=== PATIENT | female | born 1970 | race American Indian/Alaskan Native ===

== ENCOUNTER 2023-12-22 11:10 | Outpatient (AMB) | payer OTHER, SELFPAY ==
[2023-12-22 11:19] VITALS: BP 112/68; PULSE 73; RESP 13; O2SAT 96; BMI 30.2
--- NOTE | 2023-12-22 11:19 | A.OFFPC_ITS ---
Vital Signs 12/22/23 11:19 Height 5 ft 7 in Weight 193 lb BMI 30.2 BP 112/68 Blood Pressure Location Lt brachial Position Sitting Respiration 13 Pulse 73 Pulse Source Pulse Oximeter Pulse Oximetry (%) 96 Oxygen Delivery Method Room Air Intake Visit Reasons: NPV Intake Note: Patient is here to establish care. Accompanied by: Self / Same As Patient Allergies No Known Allergies Allergy (Verified 12/22/23 11:22) Medication List - Last Reconciled 12/22/23 by Tameka Winslow MD atomoxetine 60 mg PO DAILY fluticasone propion-salmeterol 250-50 mcg/dose (Advair Diskus) 1 inh inhalation Q12H zolpidem 10 mg PO BEDTIME PRN Tobacco use date assessed: 12/22/23 Dental Screening Dental Screen Date: 12/22/23 Did you have a dental visit in the last 12 months?: Yes Did you have a dental problem in the last 6 months where you did not have access to dental care?: No Was dental information given to patient?: Patient has dentist HPI HPI Comments History of Present Illness Details The patient is a 53 year old female with pmhx cervicalgia, polyarthralgia, anxiety & depression, Barretts esophagus, collagenous colitis presenting for follow up Insomnia-on ambien, elavil MSK-Chronic hip and knee pain. bilateral History of lyme. CV: Had stress test for chest pain last year Anxiety & depression: Doing ok off ssri. Still trouble sleeping though improvement on elavil. Family tragedy 5 years ago. Recurrent UTI: Sees urogynecology Dr Card. hearing loss worsening. ROS see HPI PHYSICAL EXAM: GENERAL: Alert and oriented x 3. NAD EYES: EOMI. Anicteric. HENT: Moist mucous membranes. No scleral icterus. No cervical lymphadenopathy. LUNGS: Clear to auscultation bilaterally. CARDIOVASCULAR: Regular rate and rhythm. No murmur. No JVD. ABDOMEN: Soft, non-tender +bs EXTREMITIES: No edema. Non-tender. SKIN: No rashes or lesions. Warm. NEUROLOGIC: No focal neurological deficits. CN II-XII grossly intact PSYCHIATRIC: Cooperative. Appropriate mood and affect [facility] Medical History Anxiety Arthritis Chronic GERD Asthma Ovarian cyst Surgical History History of hip surgery History of knee surgery Previous section Family History Mother Asthma Hypertension Maternal Grandmother Hypertension Colon cancer Social History Household Members: Spouse and Children Housing: Apartment Alcohol intake: current Alcohol intake frequency: a few times a month Patient Tobacco Use Status: Never used Tobacco Tobacco use type: Cigarette e-Cigarette/Vaping Use: Never Used Substance Use Type: Marijuana service: No Current occupational status: employed Current occupation: [employer] Cognitive needs: No Hearing needs: Yes (Left ear hearing loss) Vision needs: Yes (wears glasses) Questionnaire PHQ-9 Over the last 2 weeks, how often have you been bothered by any of the following problems? 1. Little interest or pleasure in doing things: not at all 2. Feeling down, depressed, or hopeless: not at all 3. Trouble falling or staying asleep, or sleeping too much: not at all 4. Feeling tired or having little energy: nearly every day 5. Poor appetite or overeating: not at all 6. Feeling bad about yourself - or that you are a failure or have let yourself or your family down: not at all 7. Trouble concentrating on things, such as reading the newspaper or watching television: several days 8. Moving or speaking so slowly that other people could have noticed. Or the opposite - being so fidgety or restless that you have been moving around a lot more than usual: not at all 9. Thoughts that you would be better off or of hurting yourself in some way: not at all Total score: 4 Depression Screening Interpretation: Negative Depression Screening Done: Yes 47155 - PHQ-9 Billing: Yes Source: Developed by Drs. Connor Taveras, Monica Hickey, Shyam Prater and colleagues, with an educational eli from [employer] Thrive Questionnaire Date Thrive assessed: 12/22/23 I am a: Patient What is your living situation today?: I have a steady place to live Within the past 12 months, did the food you bought not last and you didn't have the money to get more?: Never true Within the past 12 months, did you worry whether your food would run out before you got money to buy more?: Never true Do you have trouble paying for medicines?: No Do you have trouble getting transportation to medical appointments?: No Do you have trouble paying your heating and electricity bill?: No Do you have trouble taking care of your child, family member or friend?: No Do you have trouble with day-to-day activities such as bathing, preparing meals, shopping, managing finances, etc.?: No Are you currently unemployed and looking for a job?: No Are you interested in more education?: No Please select the resources that you would like help with: None Currently or been in a relationship where the following occur: No concerns reported THRIVE Score: 0 AUDIT C Alcohol Use Questionnaire (AUDIT-C) 1. How often do you have a drink containing alcohol?: Monthly or less 2. How many drinks containing alcohol do you have on a typical day when you are drinking?: 1 or 2 3. How often do you have six or more drinks on one occasion?: Never Total Score: 1 SUSANNA-7 AMB Questionnaire SUSANNA-7 Date SUSANNA - 7 assessed: 12/22/23 Feeling nervous, anxious, or on edge: 1 = Several days Not being able to stop or control worryin = Not at all Worrying too much about different things: 1 = Several days Trouble relaxin = Several days Being so restless that it is hard to sit still: 1 = Several days Becoming easily annoyed or irritable: 1 = Several days Feeling afraid as if something awful might happen: 0 = Not at all Total SUSANNA-7 score (0-4 normal; 5-9 mild; 10-14 moderate; 15-21 severe): 5 Source: Developed by Drs. Connor Taveras, Monica Hickey, Shyam Prater and colleagues, with an educational eli from [employer] SUSANNA-7 Assessment Billing SUSANNA-7 Assessment Tool: SUSANNA-7 Assessment 04601 ACT Questionnaire In the past 4 weeks, how much of the time did your asthma keep you from getting as much done at work, school or at home?: None of the time During the past 4 weeks, how often have you had shortness of breath?: Not at all During the past 4 weeks, how often did your asthma symptoms wake you up at night or earlier than usual in the morning?: Not at all During the past 4 weeks, how often have you had to use your rescue inhaler or n ebulizer medication?: Not at all How would you rate your asthma control during the past 4 weeks?: Completely controlled ACT Interpretation: Negative Score: 25 Physical exam (Primary Care) Vital Signs: Last Vital Signs Pulse 73 12/22/23 11:19 Resp 13 12/22/23 11:19 BP 112/68 12/22/23 11:19 Pulse Ox 96 12/22/23 11:19 Oxygen Delivery Method Room Air 12/22/23 11:19 BMI result Body Mass Index 30.2 Tobacco/Smoking Status: Tobacco use Status Tobacco use date assessed 12/22/23 12/22/23 11:37 Patient Tobacco Use Status Never used Tobacco 12/22/23 11:37 Tobacco use type Cigarette 12/22/23 11:31 e-Cigarette/Vaping Use Never Used 12/22/23 11:37 PHQ-9: PHQ-9 Score PHQ-9: Total score 4 12/22/23 11:36 Depression Screening Interpretation: Negative Thrive Assessment: Date of Thrive Assessment Date Thrive assessed 12/22/23 12/22/23 11:28 Currently or been in a relationship where the following occur: No concerns reported Assessment and Plan Assessment & Plan (1) Weight gain: Code(s): R63.5 - Abnormal weight gain Plan: check labs. GLP if covered. (2) Anxiety: Code(s): F41.9 - Anxiety disorder, unspecified (3) Asthma: Code(s): J45.909 - Unspecified asthma, uncomplicated Qualifiers: Asthma severity: moderate Asthma persistence: persistent Asthma complication type: uncomplicated Qualified Code(s): J45.40 - Moderate persistent asthma, uncomplicated (4) Hearing loss: Code(s): H91.90 - Unspecified hearing loss, unspecified ear Qualifiers: Hearing loss type: unspecified Laterality: left Qualified Code(s): H91.92 - Unspecified hearing loss, left ear Plan: referral to audiology Orders: Orders Complete Blood Count Auto Diff 12/22/23 R63.5 - Abnormal weight gain, Z13.0 - Encounter for screening for diseases of the blood and blood-forming organs and certain disorders involving the immune mechanism, Z13.220 - Encounter for screening for lipoid disorders, Z13.228 - Encounter for screening for other metabolic disorders Comprehensive Met. Panel 12/22/23 R63.5 - Abnormal weight gain, Z13.0 - Encounter for screening for diseases of the blood and blood-forming organs and certain disorders involving the immune mechanism, Z13.220 - Encounter for screening for lipoid disorders, Z13.228 - Encounter for screening for other metabolic disorders Lipid Panel 12/22/23 R63.5 - Abnormal weight gain, Z13.0 - Encounter for screening for diseases of the blood and blood-forming organs and certain disorders involving the immune mechanism, Z13.220 - Encounter for screening for lipoid disorders, Z13.228 - Encounter for screening for other metabolic disorders TSH reflex Free T4 12/22/23 R63.5 - Abnormal weight gain, Z13.0 - Encounter for screening for diseases of the blood and blood-forming organs and certain disorders involving the immune mechanism, Z13.220 - Encounter for screening for lipoid disorders, Z13.228 - Encounter for screening for other metabolic disorders Hemoglobin A1c 12/22/23 R63.5 - Abnormal weight gain, Z13.0 - Encounter for screening for diseases of the blood and blood-forming organs and certain disorders involving the immune mechanism, Z13.220 - Encounter for screening for lipoid disorders, Z13.228 - Encounter for screening for other metabolic disord ers Referrals Audiology Referral H91.90 - Unspecified hearing loss, unspecified ear, R63.5 - Abnormal weight gain, Z13.0 - Encounter for screening for diseases of the blood and blood-forming organs and certain disorders involving the immune mechanism, Z13.220 - Encounter for screening for lipoid disorders, Z13.228 - Encounter for screening for other metabolic disorders Medications: New amitriptyline 25 mg PO BEDTIME 90 tabs 3RF estradiol apply 1 patch for 3 days alternating with 1 patch for 4 days each week 1 patch transdermal 2XW 8 ea 3RF semaglutide (Ozempic) for 4 weeks 0.25 mg (0.368 mL) subcut QWEEK 3 mL 3RF 4 weeks Coding Level of Care Code Est Pt Level 4 (50155) Diagnoses Weight gain R63.5 Anxiety F41.9 Moderate persistent asthma without complication J45.40 Asthma severity: moderate Asthma persistence: persistent Asthma complication type: uncomplicated Hearing loss of left ear, unspecified hearing loss type H91.92 Hearing loss type: unspecified Laterality: left Additional Codes SUSANNA-7 Assessment Billing - USSANNA-7 Assessment Tool: SUSANNA-7 Assessment 01460 ([id number])
== END 2023-12-22 12:11 | disposition home or self-care (01) ==
PROVIDERS: PCP Internal Medicine; Visit Provider Internal Medicine
DX: R63.5 Abnormal weight gain (principal); F41.9 Anxiety disorder, unspecified; J45.40 Moderate persistent asthma, uncomplicated; H91.92 Unspecified hearing loss, left ear
CPT/HCPCS: 99214

== ENCOUNTER 2023-12-22 12:06 | Outpatient (REF) | payer OTHER, SELFPAY ==
[2023-12-22 14:27] LABS: MANUAL DIFF FLAG NO
[2023-12-22 14:35] LABS: Basophils Absolute Auto 0.1 X10*3/uL (0.0-0.2); Basophils Percent Auto 1.3 % (0-2); Eosinophils Absolute Auto 0.7 X10*3/uL (0.0-0.4); Eosinophils Percent Auto 12.3 % (0-4); Imm Gran Abs Auto 0.01 X10*3/uL (0.00-0.03); Imm Gran Pct Auto 0.2 % (0.0-0.4); Lymphocytes Absolute Auto 1.4 X10*3/uL (1.2-4.9); Lymphocytes Percent Auto 23.3 % (20-40); Mean Corpuscular HGB Conc 31.8 g/dl (31.0-35.0); Mean Corpuscular Hemoglobin 28.5 pg (27.0-33.0); Mean Corpuscular Volume 89.4 fL (80.0-98.0); Mean Platelet Volume 10.8 fL (9.4-12.3); Monocytes Absolute Auto 0.5 X10*3/uL (0.1-1.2); Monocytes Percent Auto 8.1 % (2-11); Neutrophils Absolute Auto 3.3 x10*3/uL (2.0-8.3); Neutrophils Percent Auto 54.8 % (45-73); Platelet Count 270 X10*3/uL (160-400); Red Blood Count 4.92 X10*6/uL (4.20-5.50); Red Cell Distribution Width 14.9 % (11.0-16.0); White Blood Count 5.9 X10*3/uL (4.8-10.8)
[2023-12-22 15:01] LABS: Alanine Aminotransferase 18 U/L (0-31); Alkaline Phosphatase 87 U/L (39-117); Anion Gap 10 (12-20); Aspartate Amino Transferase 20 U/L (5-31); Bilirubin Total 0.3 mg/dL (0.0-1.0); Blood Urea Nitrogen 10 mg/dL (9-16); Calcium 9.4 mg/dL (8.4-10.2); Carbon Dioxide 27 mmol/L (22-29); Chloride 110 mmol/L (96-108); Cholesterol 218 mg/dL (<200); Estimated Glomerular Filt Rate > 60; Glucose Random 90 mg/dL (60-115); HDL Cholesterol 83 mg/dL (>40); LDL Cholesterol Calculated 119 mg/dL (<100); Potassium 4.4 mmol/L (3.3-5.1); Sodium 143 mmol/L (135-145); TSH reflex Free T4 1.63 uIU/mL (0.32-4.0); Total Protein 7.4 g/dL (6.5-8.0); Triglycerides 83 mg/dL (<150)
[2023-12-22 15:45] LABS: Estimated Average Glucose 97 mg/dL
== END 2023-12-22 12:07 | disposition home or self-care (01) ==
LOC: HO.WFDLDS 12:06
PROVIDERS: Visit Provider Internal Medicine
DX: Z13.228 Encounter for screening for other metabolic disorders (principal); Z13.220 Encounter for screening for lipoid disorders; Z13.0 Encounter for screening for diseases of the blood and blood-forming organs and certain disorders involving the immune mechanism; R63.5 Abnormal weight gain
CPT/HCPCS: 36415; 80053; 80061; 83036; 84443; 85025

== ENCOUNTER 2024-02-23 10:01 | Outpatient (REF) | payer OTHER, SELFPAY | END 2024-02-23 10:02 | disposition home or self-care (01) | LOC: HO.SH 10:01 | PROVIDERS: Visit Provider Internal Medicine | DX: Z01.118 Encounter for examination of ears and hearing with other abnormal findings (principal); H93.13 Tinnitus, bilateral | CPT/HCPCS: 92557; 92567 ==

== ENCOUNTER 2024-11-01 14:47 | Outpatient (AMB) | payer OTHER, SELFPAY ==
--- NOTE | 2024-11-01 15:02 | A.OFFPC_ITS ---
Vital Signs 11/01/24 15:04 Height 5 ft 7 in Weight 198 lb 4 oz BMI 31.0 BP 116/74 Blood Pressure Location Rt brachial Position Sitting Respiration 12 Pulse 77 Pulse Source Pulse Oximeter Temp 97.5 F Temp Source Oral Pulse Oximetry (%) 97 Oxygen Delivery Method Room Air Intake Visit Reasons: discuss getting US for gallbladder Intake Note: Left sided pain. 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: No Allergies No Known Allergies Allergy (Verified 11/01/24 15:03) Tobacco use date assessed: 11/01/24 Dental Screening Dental Screen Date: 11/01/24 Did you have a dental visit in the last 12 months?: Yes Did you have a dental problem in the last 6 months where you did not have access to dental care?: No Was dental information given to patient?: Patient has dentist HPI HPI Comments History of Present Illness Details The patient is a 53 year old female with pmhx cervicalgia, polyarthralgia, anxiety & depression, Barretts esophagus, collagenous colitis presenting for follow up She has been having frequent intermittent bouts of RUQ pain. Was hospitalized at [facility] ~2 years ago and had gallstones at the time and was recommended re moval. Pain comes and goes. She eats very healthy, she is unsure if worse with eating Insomnia-on ambien, elavil MSK-Chronic hip and knee pain. bilateral History of lyme. CV: Had stress test for chest pain last year Anxiety & depression: On atomexitine, elavil. Still trouble sleeping though improvement on elavil. Family tragedy 5 years ago. Recurrent UTI: Sees urogynecology Dr Card. MSK: Continues to have pain in the hands and increased size and number of hard nodules on the joints. She would like to see a hand surgeon hearing loss worsening. ROS see HPI PHYSICAL EXAM: GENERAL: Alert and oriented x 3. NAD EYES: EOMI. Anicteric. HENT: Moist mucous membranes. No scleral icterus. No cervical lymphadenopathy. LUNGS: Clear to auscultation bilaterally. CARDIOVASCULAR: Regular rate and rhythm. No murmur. No JVD. ABDOMEN: Soft, non-tender +bs EXTREMITIES: No edema. Non-tender. SKIN: No rashes or lesions. Warm. NEUROLOGIC: No focal neurological deficits. CN II-XII grossly intact PSYCHIATRIC: Cooperative. Appropriate mood and affect [facility] Medical History Anxiety Arthritis Chronic GERD Asthma Ovarian cyst Surgical History History of hip surgery History of knee surgery Previous section Family History Mother Asthma Hypertension Maternal Grandmother Hypertension Colon cancer Social History Household Members: Spouse and Children Housing: Apartment Alcohol intake: current Alcohol intake frequency: a few times a month Patient Tobacco Use Status: Former Tobacco user Tobacco use type: Cigarette Cigarette Packs Per Day: 1 Years Smoked: 12 e-Cigarette/Vaping Use: Never Used Substance Use Type: Marijuana service: No Current occupational status: employed Current occupation: [employer] Current occupational exposures/hazards: Yes Cognitive needs: No Hearing needs: Yes (Left ear hearing loss) Vision needs: Yes (wears glasses) Questionnaire PHQ-9 Over the last 2 weeks, how often have you been bothered by any of the following problems? 1. Little interest or pleasure in doing things: not at all 2. Feeling down, depressed, or hopeless: not at all 3. Trouble falling or staying asleep, or sleeping too much: not at all 4. Feeling tired or having little energy: nearly every day 5. Poor appetite or overeating: not at all 6. Feeling bad about yourself - or that you are a failure or have let yourself or your family down: not at all 7. Trouble concentrating on things, such as reading the newspaper or watching television: more than half the days 8. Moving or speaking so slowly that other people could have noticed. Or the opposite - being so fidgety or restless that you have been moving around a lot more than usual: not at all 9. Thoughts that you would be better off or of hurting yourself in some way: not at all Total score: 5 Source: Developed by Drs. Connor Taveras, Monica Hickey, Shyam Prater and colleagues, with an educational eli from [email or web address] Thrive Questionnaire Date Thrive assessed: 10/29/24 I am a: Patient What is your living situation today?: I have a steady place to live Within the past 12 months, did the food you bought not last and you didn't have the money to get more?: Never true Within the past 12 months, did you worry whether your food would run out before you got money to buy more?: Never true Do you have trouble paying for medicines?: No Do you have trouble getting transportation to medical appointments?: No Do you have trouble paying your heating and electricity bill?: No Do you have trouble taking care of your child, family member or friend?: No Do you have trouble with day-to-day activities such as bathing, preparing meals, shopping, managing finances, etc.?: No Are you currently unemployed and looking for a job?: No Are you interested in more education?: Yes Please select the resources that you would like help with: None Currently or been in a relationship where the following occur: No concerns reported THRIVE Score: 0 AUDIT C Alcohol Use Questionnaire (AUDIT-C) 1. How often do you have a drink containing alcohol?: 2-4 times a month 2. How many drinks containing alcohol do you have on a typical day when you are drinking?: 1 or 2 3. How often do you have six or more drinks on one occasion?: Never Total Score: 2 SUSANNA-7 AMB Questionnaire SUSANNA-7 Date SUSANNA - 7 assessed: 12/22/23 Feeling nervous, anxious, or on edge: 1 = Several days Not being able to stop or control worryin = Not at all Worrying too much about different things: 1 = Several days Trouble relaxin = Several days Being so restless that it is hard to sit still: 0 = Not at all Becoming easily annoyed or irritable: 1 = Several days Feeling afraid as if something awful might happen: 0 = Not at all Total SUSANNA-7 score (0-4 normal; 5-9 mild; 10-14 moderate; 15-21 severe): 4 Source: Developed by Drs. Connor Taveras, Monica Hickey, Shyam Prater and colleagues, with an educational eli from [email or web address]. Physical exam (Primary Care) Vital Signs: Last Vital Signs Temp 97.5 F 11/01/24 15:04 Pulse 77 11/01/24 15:04 Resp 12 11/01/24 15:04 BP 116/74 11/01/24 15:04 Pulse Ox 97 11/01/24 15:04 Oxygen Delivery Method Room Air 11/01/24 15:04 BMI result Body Mass Index 31.0 Tobacco/Smoking Status: Tobacco use Status Tobacco use date assessed 11/01/24 11/01/24 15:07 Patient Tobacco Use Status Former Tobacco user 11/01/24 15:07 Tobacco use type Cigarette 11/01/24 15:07 e-Cigarette/Vaping Use Never Used 11/01/24 15:07 PHQ-9: PHQ-9 Score PHQ-9: Total score 5 11/01/24 15:11 Thrive Assessment: Date of Thrive Assessment Date Thrive assessed 10/29/24 11/01/24 15:07 Currently or been in a relationship where the following occur: No concerns reported Coding Level of Care Code Est Pt Level 4 (12736) Complex EM visit Add On G2211 Diagnoses Bilateral hand pain M79.641; M79.642 Rheumatoid nodule of hand, unspecified laterality M06.349 Laterality: unspecified laterality RUQ pain R10.11 Assessment & Plan Assessment & Plan (1) Bilateral hand pain: Code(s): M79.641 - Pain in right hand; M79.642 - Pain in left hand Category: Medical (2) Rheumatoid nodule of hand: Code(s): M06.349 - Rheumatoid nodule, unspecified hand Category: Medical Qualifiers: Laterality: unspecified laterality Qualified Code(s): M06.349 - Rheumatoid nodule, unspecified hand (3) RUQ pain: Code(s): R10.11 - Right upper quadrant pain Category: Medical Plan RUQ pain-ultrasound and labs ordered. Refer as needed to general surgery pending us results Hand pain, bilateral with nodularities-referral placed to hand surgery Depression -increase atomoxetine Orders: Orders Gamma Glutamyl Transpeptidase 11/01/24 G47.00 - Insomnia, unspecified, M54.50 - Low back pain, unspecified, R10.11 - Right upper quadrant pain US abdomen limited 11/01/24 R10.11 - Right upper quadrant pain Comprehensive Met. Panel 11/01/24 G47.00 - Insomnia, unspecified, M54.50 - Low back pain, unspecified, R10.11 - Right upper quadrant pain Lipase 11/01/24 G47.00 - Insomnia, unspecified, M54.50 - Low back pain, unspecified, R10.11 - Right upper quadrant pain Amylase 11/01/24 G47.00 - Insomnia, unspecified, M54.50 - Low back pain, unspecified, R10.11 - Right upper quadrant pain Complete Blood Count Auto Diff 11/01/24 G47.00 - Insomnia, unspecified, M54.50 - Low back pain, unspecified, R10.11 - Right upper quadrant pain TSH reflex Free T4 11/01/24 G47.00 - Insomnia, unspecified, M54.50 - Low back pain, unspecified, R10.11 - Right upper quadrant pain Referrals Hand Surgery Referral M06.349 - Rheumatoid nodule, unspecified hand, M79.641 - Pain in right hand, M79.642 - Pain in left hand Medications: New atomoxetine 80 mg PO DAILY 90 caps 0RF tirzepatide (weight loss) (Zepbound) for 4 weeks 2.5 mg (0.5 mL) subcut QWEEK 2 mL 0RF E66.9 - Obesity, unspe cified, E78.5 - Hyperlipidemia, unspecified
[2024-11-01 15:04] VITALS: BP 116/74; PULSE 77; RESP 12; TEMP 36.4; O2SAT 97; BMI 31.0
--- OUTSIDE RECORDS SUMMARY | 2024-11-01 15:52 | XMS_ITS | Clinical Summary ---
Author Organization [employer] Address [address] [place] [address] Care Team Providers Care Sawyer Cork Slabs Name Role Phone Unavailable Primary Care Provider Unavailabl e Social History Tobacco Use Types Packs/Day Years Used Date Smoking Tobacco: Never Assessed Comments Unknown Sex and Gender Information Value Date Recorded Sex Assigned at Female 04/21/2022 10:35 AM EDT Legal Sex Female 10:35 AM EDT Gender Identity Female 04/21/2022 10:35 AM EDT Sexual Orientation Not on file Plan of Treatment Health Maintenance Due Date Last Done Comments CT Colonography 1969 Colonoscopy 1969 Colorectal Cancer Screening 1969 Depression Screening 1969 FIT DNA/Cologuard 1969 FIT 1969 FOBT 1969 Sigmoidoscopy 1969 Alcohol/Substance Use Screening 1981 Tobacco Screening 1981 DTaP/Tdap/Td Vaccines (1 - Tdap) 1988 Hepatitis B Vaccines (1 of 3 - 19+ 3-dose series) 1988 Pap Smear 1990 Cervical Cancer Screening 10/05/1999 HPV/Cotest 10/05/1999 Mammogram 2009 Pneumococcal Vaccine: 50+ Ye ars (1 of 1 - PCV) 10/05/2019 Zoster Vaccines (1 of 2) 10/05/2019 COVID-19 Vaccine ( - 2023-2 5 season) 2024 Influenza Vaccine (#1) 2024 RSV Patients and Pa tients Aged 60 years or older (1 - 1-dose 75+ series) 2044 HIB Vaccines Aged Out No longer eligi ble based on patient's age to complete this topic HPV Vaccines Aged Out No longer eligi ble based on patient's age to complete this topic Hepatitis A Vaccines Aged Out No long er eligible based on patient's age to complete this topic IPV Vaccines Aged Out No longer eligi ble based on patient's age to complete this topic Meningococcal Vaccine Aged Out No raquel anahi eligible based on patient's age to complete this topic Pneumococcal Vaccine: Pediat rics (0 to 5 Years) and At-Risk Patients (6 to 49) Years) Aged Out No longer eligible b ased on patient's age to complete this topic RSV under 20 months Aged Out No longe r eligible based on patient's age to complete this topic Rotavirus Vaccines Aged Out No longer eligible based on patient's age to complete this topic
--- OUTSIDE RECORDS SUMMARY | 2024-11-01 15:52 | XMS_ITS | Encounter Summary ---
Author Organization [facility] Address [address] [place] [address] Care Team Providers Care Electric Brain Wave Equipment Mechanic Name Role Phone Unavailable Primary Care Provider Unavailabl e Encounter Details Date Type Department Care Team (Latest Contact Info) Description 12/03/2018 Abstract [facility] CONVERSIONS Dental, Provider, DDS Social History Tobacco Use Types Packs/Day Years Used Date Smoking Tobacco: Never Assessed Comments Unknown Sex and Gender Information Value Date Recorded Sex Assigned at Female 04/21/2022 10:35 AM EDT Legal Sex Female 10:35 AM EDT Gender Identity Female 04/21/2022 10:35 AM EDT Sexual Orientation Not on file documented as of this encounter Plan of Treatment Not on file documented as of this encounter Visit Diagnoses Not on filedocumented in this encounter
== END 2024-11-01 17:10 | disposition home or self-care (01) ==
LOC: HO.HMCFM 14:48
PROVIDERS: PCP Internal Medicine; Visit Provider Internal Medicine
DX: M79.641 Pain in right hand (principal); M79.642 Pain in left hand; M06.349 Rheumatoid nodule, unspecified hand; R10.11 Right upper quadrant pain

== ENCOUNTER 2024-11-01 15:34 | Outpatient (REF) | payer OTHER, SELFPAY ==
--- OUTSIDE RECORDS SUMMARY | 2024-11-01 16:21 | XMS_ITS | Encounter Summary ---
Author Organization [employer] [facility] Address [address] [place] [address] Care Team Providers Care Deputy Editor In Chief Name Role Phone Unavailable Primary Care Provider Unavailabl e Encounter Details Date Type Department Care Team (Latest Contact Info) Description 12/03/2018 Abstract [facility] CONVERSIONS Dental, Provider, DDS Social History Tobacco [...]
--- OUTSIDE RECORDS SUMMARY | 2024-11-01 16:21 | XMS_ITS | Clinical Summary ---
Author Organization [employer] Address [address] [place] [address] Care Team Providers Care Behaviorist Name Role Phone Unavailable Primary Care Provider [...]
[2024-11-01 17:57] LABS: MANUAL DIFF FLAG NO
[2024-11-01 18:10] LABS: Basophils Absolute Auto 0.1 X10*3/uL (0.0-0.2); Basophils Percent Auto 1.1 % (0-2); Eosinophils Absolute Auto 0.6 X10*3/uL (0.0-0.4); Eosinophils Percent Auto 8.4 % (0-4); Hematocrit 43.1 % (37.0-47.0); Hemoglobin 13.9 g/dl (12.0-16.0); Imm Gran Abs Auto 0.01 X10*3/uL (0.00-0.03); Imm Gran Pct Auto 0.2 % (0.0-0.4); Lymphocytes Absolute Auto 1.7 X10*3/uL (1.2-4.9); Lymphocytes Percent Auto 25.3 % (20-40); Mean Corpuscular HGB Conc 32.3 g/dl (31.0-35.0); Mean Corpuscular Hemoglobin 29.5 pg (27.0-33.0); Mean Corpuscular Volume 91.5 fL (80.0-98.0); Mean Platelet Volume 10.6 fL (9.4-12.3); Monocytes Absolute Auto 0.6 X10*3/uL (0.1-1.2); Monocytes Percent Auto 8.8 % (2-11); Neutrophils Absolute Auto 3.7 x10*3/uL (2.0-8.3); Neutrophils Percent Auto 56.2 % (45-73); Platelet Count 241 X10*3/uL (160-400); Red Blood Count 4.71 X10*6/uL (4.20-5.50); Red Cell Distribution Width 13.7 % (11.0-16.0); White Blood Count 6.6 X10*3/uL (4.8-10.8)
[2024-11-01 18:52] LABS: Alanine Aminotransferase 25 U/L (0-31); Alkaline Phosphatase 95 U/L (39-117); Amylase 80 U/L (28-100); Anion Gap 12 (12-20); Aspartate Amino Transferase 32 U/L (5-31); Bilirubin Total 0.5 mg/dL (0.0-1.0); Blood Urea Nitrogen 12 mg/dL (9-16); Calcium 8.8 mg/dL (8.4-10.2); Carbon Dioxide 25 mmol/L (22-29); Chloride 108 mmol/L (96-108); Estimated Glomerular Filt Rate > 60; Glucose Random 98 mg/dL (60-115); Lipase 40 U/L (8-78); Potassium 3.7 mmol/L (3.3-5.1); Sodium 141 mmol/L (135-145); TSH reflex Free T4 1.29 uIU/mL (0.32-4.0); Total Protein 7.2 g/dL (6.5-8.0)
[2024-11-01 19:06] LABS: Gamma Glutamyl Transpeptidase 30 U/L (7-33)
== END 2024-11-01 15:35 | disposition home or self-care (01) ==
LOC: HO.WFDLDS 15:34
PROVIDERS: Visit Provider Internal Medicine
DX: R10.11 Right upper quadrant pain (principal); G47.00 Insomnia, unspecified; M54.50 Low back pain, unspecified
CPT/HCPCS: 36415; 80053; 82150; 82977; 83690; 84443; 85025

== ENCOUNTER 2024-11-15 15:40 | Outpatient (REF) | payer OTHER, SELFPAY ==
--- NOTE | ~2024-11-15 | US_ITS ---
EXAMINATION: US ABDOMEN LIMITED CLINICAL INFORMATION: Right upper quadrant pain.. COMPARISON: None available. TECHNIQUE: Real-time imaging of the right upper quadrant abdominal viscera. FINDINGS: PANCREAS: Visualized portions are unremarkable. LIVER: The liver is normal in size. Right hepatic lobe measures 13.1 cm in length. The liver contour is normal. Parenchymal echogenicity is normal. No focal hepatic lesion. There is no intrahepatic biliary duct dilatation seen. GALLBLADDER: Gallbladder demonstrates wall echo shadow sign, suggestive of diffuse layering internal gallstones, with shadowing. There is mild wall thickening up to 4 mm. There is mild pericholecystic fluid. There was a positive sonographic Vaca sign at time of exam. COMMON BILE DUCT: Normal in caliber measuring 0.7 cm in diameter. RIGHT KIDNEY: No hydronephrosis. No renal calculi or focal parenchymal lesions. The kidney measures 9.8 cm in maximum dimension. FREE FLUID: None. US/US abdomen limited IMPRESSION: 1. Gallbladder appears filled with gallstones, with mild wall thickening, small amount of pericholecystic fluid, and a positive sonographic Vaca sign. Findings suggest acute cholecystitis. 2. No biliary dilatation. Electronically signed by: Colt Daly MD 11/15/2024 04:25 PM EDT
--- OUTSIDE RECORDS SUMMARY | 2024-11-15 15:43 | XMS_ITS | Clinical Summary ---
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 Role Phone Unavailable Primary Care Provider [...] 1969 FIT 1969 FOBT 1969 Sigmoidoscopy 1969 Disability Screening 1969 Alcohol/Substance Use Screening 1981 Tobacco Screening 1981 DTaP/Tdap/Td Vaccines (1 - Tdap) 1988 Hepatitis B Vaccines (1 of 3 - 19+ 3-dose series) 1988 Pap Smear 1990 Cervical Cancer Screening 10/05/1999 HPV/Cotest 10/05/1999 Mammogram 2009 Pneumococcal Vaccine: 50+ Ye ars (1 of 1 - PCV) 10/05/2019 Zoster Vaccines (1 of 2) 10/05/2019 COVID-19 Vaccine (2023-2 5 season) 2024 Influenza Vaccine (#1) 2024 [...] patient's age to complete this topic Meningococcal B Vaccine Aged Out No l onger eligible based on patient's age to complete [...]
== END 2024-11-15 15:41 | disposition home or self-care (01) ==
LOC: HO.US 15:40
PROVIDERS: Visit Provider Internal Medicine
DX: R10.11 Right upper quadrant pain (principal)
CPT/HCPCS: 76705

== ENCOUNTER → 2024-11-15 15:43 | Outpatient (BNV) | payer OTHER, SELFPAY | PROVIDERS: Visit Provider Radiology Diagnostic Radiology | DX: K80.00 Calculus of gallbladder with acute cholecystitis without obstruction (principal) | CPT/HCPCS: 76705 ==

== ENCOUNTER 2024-11-21 08:49 | Outpatient (AMB) | payer OTHER, SELFPAY ==
--- NOTE | 2024-11-21 08:51 | MHC.PC.OV ---
Vital Signs 11/21/24 08:57 BMI Reason not done Patient refused/unable BP 114/82 Blood Pressure Location Lt brachial Position Sitting Respiration 14 Pulse 90 Pulse Source Pulse Oximeter Pulse Oximetry (%) 98 Oxygen Delivery Method Room Air Intake Visit Reasons: ED Follow-up Intake Note: Emergency room follow up for gallbladder pain. Account Contact Associate Required: No Allergies No Known Allergies Allergy (Verified 11/21/24 08:51) Tobacco use date assessed: 11/21/24 Dental Screening Dental Screen Date: 11/21/24 Did you have a dental visit in the last 12 months?: Yes Did you have a dental problem in the last 6 months where you did not have access to dental care?: No Was dental information given to patient?: Patient has dentist HPI HPI Comments History of Present Illness Details The patient is a 53 year old female with pmhx cervicalgia, polyarthralgia, anxiety & depression, Barretts esophagus, collagenous colitis presenting for ER follow up She has been having frequent intermittent bouts of RUQ pain. Was hospitalized at [facility] ~2 years ago and had gallstones at the time and was recommended removal. Pain comes and goes. She eats very healthy, she is unsure if worse with eating. Ultrasound at [place] concerning for cholecystitis. Went to [facility] later same day and multiple stones but no evidence of acute cholecystitis. Needs surgery referral. Incidental pulmonary findings-referral to pulm placed. Not in pain today, continues to happen intermittently. Day after ER visit for RUQ pain seen again at [facility] after fall and left foot fracture with rib fractures. seeing dr dickerson. Insomnia-on ambien, elavil MSK-Chronic hip and knee pain. bilateral History of lyme. CV: Had stress test for chest pain last year Anxiety & depression: On atomexitine, elavil. Still trouble sleeping though improvement on elavil. Family tragedy 5 years ago. Recurrent UTI: Sees urogynecology Dr Card. MSK: Continues to have pain in the hands and increased size and number of hard nodules on the joints. She would like to see a hand surgeon hearing loss worsening. ROS see HPI PHYSICAL EXAM: GENERAL: Alert and oriented x 3. NAD EYES: EOMI. Anicteric. HENT: Moist mucous membranes. No scleral icterus. No cervical lymphadenopathy. LUNGS: Clear to auscultation bilaterally. CARDIOVASCULAR: Regular rate and rhythm. No murmur. No JVD. ABDOMEN: Soft, non-tender +bs EXTREMITIES: No edema. Non-tender. SKIN: No rashes or lesions. Warm. NEUROLOGIC: No focal neurological deficits. CN II-XII grossly intact PSYCHIATRIC: Cooperative. Appropriate mood and affect [facility] Medical History Anxiety Arthritis Chronic GERD Asthma Ovarian cyst Surgical History History of hip surgery History of knee surgery Previous section Family History Mother Asthma Hypertension Maternal Grandmother Hypertension Colon cancer Social History Household Members: Spouse and Children Housing: Apartment 75 years or older and lives alone: No Alcohol intake: current Alcohol intake frequency: a few times a month Patient Tobacco Use Status: Former Tobacco user Tobacco use type: Cigarette Cigarette Packs Per Day: 1 Years Smoked: 12 e-Cigarette/Vaping Use: Never Used Substance Use Type: Marijuana service: No Current occupational status: employed Current occupation: [employer] Current occupational exposures/hazards: Yes Cognitive needs: No Hearing needs: Yes (Left ear hearing loss) Vision needs: Yes (wears glasses) Questionnaire Thrive Questionnaire Date Thrive assessed: 10/29/24 I am a: Patient What is your living situation today?: I have a steady place to live Within the past 12 months, did the food you bought not last and you didn't have the money to get more?: Never true Within the past 12 months, did you worry whether your food would run out before you got money to buy more?: Never true Do you have trouble paying for medicines?: No Do you have trouble getting transportation to medical appointments?: No Do you have trouble paying your heating and electricity bill?: No Do you have trouble taking care of your child, family member or friend?: No Do you have trouble with day-to-day activities such as bathing, preparing meals, shopping, managing finances, etc.?: No Are you currently unemployed and looking for a job?: No Are you interested in more education?: Yes Please select the resources that you would like help with: None Currently or been in a relationship where the following occur: No concerns reported THRIVE Score: 0 AUDIT C Alcohol Use Questionnaire (AUDIT-C) 1. How often do you have a drink containing alcohol?: Monthly or less 2. How many drinks containing alcohol do you have on a typical day when you are drinking?: 1 or 2 3. How often do you have six or more drinks on one occasion?: Never Total Score: 1 SUSANNA-7 AMB Questionnaire SUSANNA-7 Date SUSANNA - 7 assessed: 12/22/23 Source: Developed by Drs. Connor Taveras, Monica Hickey, Shyam Prater and colleagues, with an educational eli from [employer]. Physical exam (Primary Care) Vital Signs: Last Vital Signs Pulse 90 11/21/24 08:57 Resp 14 11/21/24 08:57 BP 114/82 11/21/24 08:57 Pulse Ox 98 11/21/24 08:57 Oxygen Delivery Method Room Air 11/21/24 08:57 Tobacco/Smoking Status: Tobacco use Status Tobacco use date assessed 11/21/24 11/21/24 08:53 Patient Tobacco Use Status Former Tobacco user 11/21/24 08:53 Tobacco use type Cigarette 11/21/24 08:53 e-Cigarette/Vaping Use Never Used 11/21/24 08:53 Thrive Assessment: Date of Thrive Assessment Date Thrive assessed 10/29/24 11/21/24 08:53 Currently or been in a relationship where the following occur: No concerns reported Coding Level of Care Code Est Pt Level 4 (79315) Diagnoses Calculus of gallbladder and bile duct with chronic cholecystitis without obstruction K80.64 Cholelithiasis location: gallbladder and bile duct Cholecystitis presence: with cholecystitis Cholecystitis acuity: chronic Biliary obstruction: without biliary obstruction Rib pain R07.81 RUQ pain R10.11 Assessment & Plan Assessment & Plan (1) Cholelithiasis: Code(s): K80.20 - Calculus of gallbladder without cholecystitis without obstruction Category: Medical Qualifiers: Cholelithiasis location: gallbladder and bile duct Cholecystitis presence: with cholecystitis Cholecystitis acuity: chronic Biliary obstruction: without biliary obstruction Qualified Code(s): K80.64 - Calculus of gallbladder and bile duct with chronic cholecystitis without obstruction (2) Rib pain: Code(s): R07.81 - Pleurodynia Category: Medical (3) RUQ pain: Code(s): R10.11 - Right upper quadrant pain Category: Medical Plan referral placed to general surgery for gallstones, RUQ pain referral placed to pulm for follow up incidental findings seeing ortho for foot and rib fractures She is picking up the demerol today. She can use robitussin codeine for rib pain/breathing Orders: Referrals General Surgery Referral K80.20 - Calculus of gallbladder without cholecystitis without obstruction, R10.11 - Right upper quadrant pain Pulmonology Referral R91.1 - Solitary pulmonary nodule Medications: New codeine-guaifenesin 10-100 mg/5 mL may pay out of pocket partial fill upon patient request 5 mL PO Q6H PRN 473 mL 3RF cough R07.81 - Pleurodynia
[2024-11-21 08:57] VITALS: BP 114/82; PULSE 90; RESP 14; O2SAT 98
== END 2024-11-21 16:52 | disposition home or self-care (01) ==
LOC: HO.HMCFM 08:50
PROVIDERS: Visit Provider Internal Medicine
DX: K80.64 Calculus of gallbladder and bile duct with chronic cholecystitis without obstruction (principal); R07.81 Pleurodynia; R10.11 Right upper quadrant pain

== ENCOUNTER → 2024-11-21 08:49 | Outpatient (BNVA) | payer OTHER, SELFPAY | PROVIDERS: Visit Provider Internal Medicine ==

== ENCOUNTER 2025-01-23 12:47 | Outpatient (AMB) | payer OTHER, SELFPAY ==
--- NOTE | 2025-01-23 12:50 | A.OFFVIS_ITS ---
Intake Visit Reasons: Calculus of Gallbladder Intake Note: Patient is seen in office for evaluation of the gallbladder. 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 The pain has been persistent for the past several years but has increased in severity and frequency. She also reports some nausea and vomiting associated with the pain. She was previously evaluated with an ultrasound for an unrelated cause him noted to have gallstones. Recent visit to the emergency department revealed a gallbladder filled with gallstones. She presents today to discuss her options regarding the gallstones. [facility] Medical History Anxiety Arthritis Chronic GERD Asthma Ovarian cyst Surgical History History of hip surgery History of knee surgery Previous section Family History Mother Asthma Hypertension Maternal Grandmother Hypertension Colon cancer Social History Household Members: Spouse and Children Housing: Apartment 75 years or older and lives alone: No Alcohol intake: current Alcohol intake frequency: a few times a month Patient Tobacco Use Status: Former Tobacco user Tobacco use type: Cigarette Cigarette Packs Per Day: 1 Years Smoked: 12 e-Cigarette/Vaping Use: Never Used Substance Use Type: Marijuana service: No Current occupational status: employed Current occupation: [employer] Current occupational exposures/hazards: Yes Cognitive needs: No Hearing needs: Yes (Left ear hearing loss) Vision needs: Yes (wears glasses) Review of Systems Const All systems reviewed & are unremarkable except as noted in HPI and below Physical Exam Const General: cooperative and no acute distress Nutritional Appearance: well nourished Orientation/consciousness: patient oriented x3 Limitations: no limitations HEENT Head: Yes normocephalic and Yes atraumatic Ears: hearing grossly normal bilaterally Resp Effort & Inspection: normal respiratory effort, no audible wheezes, no cough and no respiratory distress Cardio Jugular venous distension: no JVD GI Other: Soft, nondistended, minimally tender in the epigastric and right upper quadrant with a weakly positive Vaca sign. There was no rebound, guarding or rigidity. Pfannenstiel incision. Inspection: Yes normal to inspection Skin Other: Warm, dry, no rash Neuro General: patient oriented x3 Extrem General: Yes no clubbing, cyanosis or edema Assessment & Plan Assessment & Plan (1) Cholelithiasis: Code(s): K80.20 - Calculus of gallbladder without cholecystitis without obstruction Category: Medical Qualifiers: Cholelithiasis location: gallbladder and bile duct Cholecystitis presence: with cholecystitis Cholecystitis acuity: chronic Biliary obstruction: without biliary obstruction Qualified Code(s): K80.64 - Calculus of gallbladder and bile duct with chronic cholecystitis without obstruction (2) Symptomatic cholelithiasis: Code(s): K80.20 - Calculus of gallbladder without cholecystitis without obstruction Category: Medical Plan 54-year-old female patient presenting with complaints of abdominal pain in the epigastrium and right upper quadrant found on ultrasound to have gallbladder filled with gallstones. Ultrasound report notes wall thickening, pericholecyst ic fluid and a sonographic Vaca sign. On examination the patient does have some mild tenderness in the right upper quadrant as well. Findings are suggestive of symptomatic cholelithiasis. After discussion of the procedure, risks, and alternatives, the patient consents to a laparoscopic or possible open cholecystectomy. She will be scheduled as a short-stay surgery at her earliest convenience. Coding Level of Care Code New Pt Level 4 (44844) Diagnoses Calculus of gallbladder and bile duct with chronic cholecystitis without obstruction K80.64 Cholelithiasis location: gallbladder and bile duct Cholecystitis presence: with cholecystitis Cholecystitis acuity: chronic Biliary obstruction: without biliary obstruction Symptomatic cholelithiasis K80.20
--- OUTSIDE RECORDS SUMMARY | 2025-01-23 13:06 | XMS_ITS | Clinical Summary ---
Author Organization [employer] Address [address] [facility] [address] [place] [address] Care Team Providers Care Bacteriologist Pharmaceutical Name Role Phone Unavailable Primary Care Provider [...] (2023-2 5 season) 2024 Influenza Vaccine (#1) 2025 RSV Patients and Pa tients Aged 60 [...]
== END 2025-01-23 13:23 | disposition home or self-care (01) ==
LOC: HO.HGS 12:48
PROVIDERS: Visit Provider Surgery
DX: K80.64 Calculus of gallbladder and bile duct with chronic cholecystitis without obstruction (principal); K80.20 Calculus of gallbladder without cholecystitis without obstruction
CPT/HCPCS: 99204

== ENCOUNTER 2025-01-31 12:51 | Outpatient (AMB) | payer OTHER, SELFPAY ==
--- NOTE | 2025-01-31 12:54 | AM.OFFWIN_ITS ---
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 - Sudden onset a few weeks ago - Pain severe, interrupts sleep - Persistent swelling, worsens when hair ding - History of right ankle fracture, now h ealed - X-ray from [facility] done of R foot/ank le 1 week ago, she reports No new fracture; i dont have these records - Reports long hours on feet, possible c ontributing factor - Pain on top of R foot between 2nd and 3rd toe - On Estradiol - using Ibu 800mg TID w little effect Review of Systems - Musculoskeletal: Reports right foot pa in and swelling. Denies any other joint pain. - Cardiovascular: Denies chest pain. - Respiratory: Denies shortness of breat h. - General: Denies fever, chills. Physical Exam General: Well developed, well nourished, in no acute distress. Appears stated age. Head: Normocephalic, atraumatic. Eyes: Pupils are equal, round and reactive to light and accommodation. Conjunctivae are clear. Lungs: Speaking in full sentences Pulses: Peripheral pulses are equal and palpable bilaterally. Extremities: Edema BLE R>L, R foot is midly dusky yet chain pegger dependent position; pain over dorsum of foot proximal to toes in between the 2nd and 3rd toe; Antalgic gait favoring R foot; Normal ROM R ankle. Skin intact. Psych: Mood and affect appropriate. Results - X-ray of the right foot and ankle ([facility]): No fracture detected per report - Stat US Duplex RLE - ordered and pendi ng Discussion Notes I discussed the possibility of Nascimento's neuroma with the patient, given the presentation of symptoms. I explained that Nascimento's neuroma is an inflammation around a nerve ending in the foot. We reviewed the importance of ruling out a blood clot as the swelling travels up the leg, posing a potential risk. Therefore, a stat ultrasound of the right leg was recommended to rule out deep vein thrombosis (DVT). We discussed that if the ultrasound results are clear, other causes such as vascular insufficiency or a neuroma will be considered. Additionally, I advised the patient on using anti-inflammatory medication and wearing wide-toe shoes to alleviate pressure. I informed her about the procedure for obtaining the ultrasound and the implications of potential findings. Follow- up steps and the significance of managing persistent symptoms were emphasized. Patient was given time to ask questions. All questions were answered to their satisfaction. Assessment and Plan 1. Right Foot Pain and Swelling - Consider Nascimento's neuroma, advised on wide-toe shoes. - Continue Ibuprofen 800 mg. - Ordered stat ultrasound for DVT rule-o ut. - I will fu once results are back and co nsider Vascular referral or podiatry referral Patient Instructions - Wear wide-toe shoes to reduce foot dis comfort. - Continue taking Ibuprofen as instructe d. - Attend the ultrasound appointment to [facility] for blood clots. - Return if symptoms worsen or do not im prove with treatment. Consent Patient was informed and verbally consented to the use of an ambient scribe for clinic note documentation during this visit. Total time spent caring for the patient today was 30 minutes. This includes time spent before the visit reviewing the chart, time spent during the visit, and time spent after the visit on documentation, reviewing laboratory results, diagnostic imaging, medications, performing a medically necessary evaluation, counseling on diagnoses, care coordination, ordering appropriate tests, ordering appropriate medications, review of tests performed by other providers, reporting test results with the patient, communication with other healthcare providers. [facility] Medical History Anxiety Arthritis Chronic GERD Asthma Ovarian cyst Surgical History History of hip surgery History of knee surgery Previous section Family History Mother Asthma Hypertension Maternal Grandmother Hypertension Colon cancer Social History Household Members: Spouse and Children Housing: Apartment 75 years or older and lives alone: No Alcohol intake: current Alcohol intake frequency: a few times a month Patient Tobacco Use Status: Former Tobacco user Tobacco use type: Cigarette Cigarette Packs Per Day: 1 Years Smoked: 12 e-Cigarette/Vaping Use: Never Used Substance Use Type: Marijuana service: No Current occupational status: employed Current occupation: [employer] Current occupational exposures/hazards: Yes Cognitive needs: No Hearing needs: Yes (Left ear hearing loss) Vision needs: Yes (wears glasses) Physical Exam Vital Signs: Last Vital Signs Temp 97.1 F 01/31/25 12:57 Resp 12 01/31/25 12:57 BP 124/72 01/31/25 12:57 BMI result Body Mass Index 32.6 Assessment & Plan Assessment & Plan (1) Swelling of right lower extremity: Code(s): M79.89 - Other specified soft tissue disorders (2) Right foot pain: Code(s): M79.671 - Pain in right foot Plan ,. Orders: Orders US venous duplex LE RT Today M79.89 - Other specified soft tissue disorders Coding Level of Care Code Est Pt Level 4 (65628) Diagnoses Swelling of right lower extremity M79.89 Right foot pain M79.671
[2025-01-31 12:57] VITALS: BP 124/72; RESP 12; TEMP 36.2; BMI 32.6
--- OUTSIDE RECORDS SUMMARY | 2025-01-31 13:31 | XMS_ITS | Clinical Summary ---
Author Organization [employer] Address [address] [facility] [address] [place] [address] Care Team Providers Care Triage Licensed Practical Nurse Name Role Phone Unavailable Primary Care Provider [...]
== END 2025-01-31 13:15 | disposition home or self-care (01) ==
LOC: HO.HMCFM 12:51
PROVIDERS: PCP Internal Medicine; Visit Provider Nurse Practitioner Family
DX: M79.89 Other specified soft tissue disorders (principal); M79.671 Pain in right foot

== ENCOUNTER 2025-01-31 14:44 | Outpatient (REF) | payer OTHER, SELFPAY ==
--- NOTE | ~2025-01-31 | US_ITS ---
EXAMINATION: US LOWER EXTREMITY VEINS LIMITED FOLLOW UP RIGHT HISTORY: M79.89 - swelling COMPARISON: There are no prior studies available for comparison. TECHNIQUE: Duplex and color Doppler sonographic examination of the deep venous system of the right lower extremity was performed. FINDINGS: The common femoral, superficial femoral, and popliteal veins are patent demonstrating normal compressibility, spontaneous flow, and augmentation. There is a normal color and spectral Doppler waveform appearance of the visualized deep venous system above the knee. The posterior tibial and peroneal veins are patent. US/US venous duplex LE RT IMPRESSION: No evidence of acute DVT in the right lower extremity. Electronically signed by: Connor Rangel MD 01/31/2025 03:08 PM EDT
== END 2025-01-31 14:45 | disposition home or self-care (01) ==
LOC: HO.US 14:44
PROVIDERS: Visit Provider Nurse Practitioner Family
DX: R60.0 Localized edema (principal)
CPT/HCPCS: 93971

== ENCOUNTER → 2025-01-31 14:50 | Outpatient (BNV) | payer OTHER, SELFPAY | PROVIDERS: Visit Provider Radiology Diagnostic Radiology | DX: M79.89 Other specified soft tissue disorders (principal) | CPT/HCPCS: 93971 ==

== ENCOUNTER 2025-02-15 05:57 | Day surgery (SDC) | payer OTHER, SELFPAY ==
--- OUTSIDE RECORDS SUMMARY | 2025-01-26 07:48 | XMS_ITS | Encounter Summary ---
Author Organization [facility] Address [address] [place] [address] Care Team Providers Care Account Executive Sales Representative Name Role Phone Tameka Aparicio MD Primary Care Provider David Reyes Ch MD Primary Care Provider [phone] Reason for Visit * Reason Comments E-prescribe Rx Request Encounter Details Date Type Department Care Team Description 09/26/2019 Refill Gastroenterology [address] [place] [address] Marco A Garcia MD E-prescribe Rx Request Social History Tobacco Use Types Packs/Day Years Used Date Smoking Tobacco: Former Cigarettes 1 15 Q uit: 10/05/2015 Smokeless Tobacco: Never Alcohol Use Standard Drinks/Week Comments No 0 (1 standard drink = 0.6 oz pur e alcohol) Alcohol Habits Answer Date Recorded How often do you have a drink containing alcohol ? Never 08/23/2019 How many drinks containing a lcohol do you have on a typical day when you are drinking? Not asked How often do you have six or more drinks on one occasion? Not asked Financial Resource Strain Answer Date R ecorded How hard is it for you to pa y for the very basics like food, housing, medical care, and heating? Not hard at all 08/23/2019 Food Insecurity Answer Date Recorded Within the past 12 months, y ou worried that your food would run out before you got money to buy more. Never true 08/23/2019 Within the past 12 months, t he food you bought just didn't last and you didn't have money to get more. Never true 08/23/2019 Transportation Needs Answer Date Record ed In the past 12 months, has l ack of transportation kept you from medical appointments or from getting medications? No 08/2019 In the past 12 months, has l ack of transportation kept you from meetings, work, or getting things needed for daily living? No 08/23/2019 Sex Assigned at Date Recorded Female 01/27/2021 11:09 PM EDT documented as of this encounter Miscellaneous Notes * Telephone Encounter - Purnima Nuenz M.A. - 09/27/2019 8:10 AM EDT Last office visit 04/21/2016 documented in this encounter Plan of Treatment Not on file documented as of this encounter Visit Diagnoses Diagnosis Collagenous colitis Other and unspecified noninfectious gastroenteritis and colitis documented in this encounter Care Teams Account Executive Sales Representative Relationship Specialty Start Date End Date Tameka Aparicio MD PCP - General Internal Medicine 07/02/15 10/24/20 Nneka Reyes MD [address] [place] [id number] PCP - General Internal Medicine 10/25/20 documented as of this encounter
--- OUTSIDE RECORDS SUMMARY | 2025-01-26 07:48 | XMS_ITS | Clinical Summary ---
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
[2025-02-13 08:32] VITALS: BMI 31.0
--- NOTE | 2025-02-14 10:50 | P.CONAN_ITS ---
Documented by User: Almaz Hector NP 02/14/25 10:54 HPI - Anesthesia Eval Consult details Narrative: 54yo F for Cholecystectomy Laparoscopic,possible open Demerol rx (from pcp 11/2024 for rib pain) PMFSH Active Problems Active Problems: All Active Problems Right foot pain (Acute) Swelling of right lower extremity (Acute) Symptomatic cholelithiasis (Acute) Rib pain (Acute) Lung nodule (Acute) Cholelithiasis (Acute) Obesity (BMI 30-39.9) (Acute) Hyperlipidemia (Acute) Bilateral hand pain (Acute) Rheumatoid nodule of hand (Acute) RUQ pain (Acute) Insomnia (Acute) Low back pain (Acute) Left hip pain (Acute) Anxiety (Acute) Asthma (Acute) Weight gain (Acute) Hearing loss (Acute) Past Medical History Medical History Anxiety Arthritis Chronic GERD Asthma Ovarian cyst Family History Family History Mother Asthma Hypertension Maternal Grandmother Hypertension Colon cancer Surgical History Surgical History History of hip surgery History of knee surgery Previous section Social History Social History Household Members: Spouse and Children Housing: Apartment Alcohol intake: current Alcohol intake frequency: a few times a month Patient Tobacco Use Status: Former Tobacco user Tobacco use type: Smokeless Tobacco Cigarette Packs Per Day: 1 Years Smoked: 12 e-Cigarette/Vaping Use: Never Used Use of substances other than those prescribed or required for medical reasons: No Substance Use Type: Marijuana Advance Directives: No Advance Directives Information Provided: Yes service: No Current occupational status: employed Current occupation: [employer] Current occupational exposures/hazards: Yes Cognitive needs: No Hearing needs: Yes (Left ear hearing loss) Vision needs: Yes (wears glasses) Meds Allergies Allergy/AdvReac Type Severity Reaction Status Date / Time methocarbamol Allergy Rash Verified 02/15/25 07:12 Home Medications ?Medication ?Instructions ?Recorded ?Confirmed ?Last Taken ?Type fluticasone 250 mcg-salmeterol 50 1 ea inhalation Q12H 02/15/25 02/15/25 02/15/25 05:00 History mcg/dose blistr powdr for inhalation (Brittnee Seguraub) Exam Height,Weight and Vital Signs: Height 5 ft 7 in Weight 89.811 kg Pertinent Lab Results Pertinent Lab Results: Laboratory Tests 11/01/24 15:36 WBC 6.6 Hgb 13.9 Hct 43.1 Plt Count 241 Sodium 141 Potassium 3.7 Chloride 108 Carbon Dioxide 25 BUN 12 Creatinine 0.75 Assessment and Plan Assessment Anesthesia Assessment: Chart Reviewed Documented by User: Chintan Cameron MD 02/15/25 07:33 PMFSH Past Medical History Medical History Anxiety Arthritis Chronic GERD Asthma Ovarian cyst Functional capacity: independent ambulation Family History Family History Mother Asthma Hypertension Maternal Grandmother Hypertension Colon cancer Family history of problems with anesthesia: Yes Surgical History Surgical History History of hip surgery History of knee surgery Previous section History of Problems with Anesthesia: No Social History Social History Household Members: Spouse and Children Housing: Apartment Alcohol intake: current Alcohol intake frequency: a few times a month Patient Tobacco Use Status: Former Tobacco user Tobacco use type: Smokeless Tobacco Cigarette Packs Per Day: 1 Years Smoked: 12 e-Cigarette/Vaping Use: Never Used Use of substances other than those prescribed or required for medical reasons: No Substance Use Type: Marijuana Advance Directives: No Advance Directives Information Provided: Yes service: No Current occupational status: employed Current occupation: [employer] Current occupational exposures/hazards: Yes Cognitive needs: No Hearing needs: Yes (Left ear hearing loss) Vision needs: Yes (wears glasses) Meds Allergies Allergy/AdvReac Type Severity Reaction Status Date / Time methocarbamol Allergy Rash Verified 02/15/25 07:12 Home Medications ?Medication ?Instructions ?Recorded ?Confirmed ?Last Taken ?Type fluticasone 250 mcg-salmeterol 50 1 ea inhalation Q12H 02/15/25 02/15/25 02/15/25 05:00 History mcg/dose blistr powdr for inhalation (Brittnee Rodriguez) Exam Exam Date and Time: 02/15/2025 Airway Mallampati Class: II TM Dist: >3cm Neck ROM: Full Heart: rrr Lungs: cts Assessment and Plan Final Anesthetic Review Family History of Problems with Anesthesia: Yes History of Problems with Anesthesia: No NPO: Yes ASA Class: II Final Preanesthetic Review: No Changes in Pt Med Stat, Meds/Allgs Chart Rev iewed, Consent Obtained/Reviewed and Anes Risks/Benef Reviewed Patient Risk: Low Procedure Risk: Low Anesthetic Plan Anesthetic Plan: GA (will avoid MH triggers) Disposition: Standard PACU
[2025-02-15] VITALS (9 sets, daily range): BP systolic 107–132; BP diastolic 43–74; PULSE 79–89; RESP 16–18; TEMP 36.1–36.5; O2SAT 97–100
[2025-02-15] MEDS: Lactated Ringers 1,000 ML 100 ML IVCONT (06:33)
--- NOTE | 2025-02-15 07:27 | MHC.SHP ---
Pre-Procedural Eval Section A - 24 Hr Update-Section A only Date of Service: 02/15/25 The patient is an INPATIENT: No Changes since office visit: Yes Patient answered all questions; No Cold of Flu in the past 2 weeks, No New Medical Problems and No Changes in Medication The patient has been examined within 24 hours of the surgical procedure. The History & Physical has been completed within 30 days and I have reviewed it.: Yes Section B - Complete if H&P > 30 days Chief Complaint: Calculus of gallbladder without cholecystitis Allergies: Allergies Allergy/AdvReac Type Severity Reaction Status Date / Time methocarbamol Allergy Rash Verified 02/15/25 07:12 Plan Diagnosis/Plan: Unchanged I have reviewed the history and physical and performed a pertinent physical examination on my patient. No changes have occurred unless specified. Time Spent With Patient Time: Total time managing care of this patient today ____ minutes.
--- NOTE | 2025-02-15 09:22 | W.PM.OPN ---
Operative Note Operative Note Date of Service: 02/15/25 Narrative: Preoperative diagnosis: Chronic cholecystitis, cholelithasis Postoperative diagnosis: Same Procedure: Laparoscopic cholecystectomy Surgeon: Tj Tapia MD Shop Helper: Seth iVeyra PA-C, Shelby Gaitan, MS-3 Anesthesia: General endotracheal Indications for procedure: 54-year-old female patient presenting with complaints of right upper quadrant abdominal pain found to have a large gallstone within the gallbladder. She presents today for laparoscopic or possible open cholecystectomy. Operative findings: Acute and chronic cholecystitis with a large gallstone noted at the fundus of the gallbladder. Specimen: gallbladder Estimated blood loss: 2 mL Complications: None Procedure details: Patient was brought to the OR and placed in a supine position. After administering general anesthesia the patient's abdomen was prepped with ChloraPrep and draped in a sterile fashion. A surgical time-out was called the consent confirmed. Patient received preoperative antibiotics and Venodyne boots were in place. Local anesthesia consisting of 0.5% Sensorcaine without epinephrine was infiltrated in a periumbilical region. A 5 mm incision was made above the umbilicus in a transverse fashion. The Veress needle was then inserted while elevating abdominal cavity with towel clips. After positive drop test the abdomen was insufflated to a pressure of 15 mm of mercury. The Veress needle was then removed and a 5 mm trocar inserted. The camera was inserted in the abdomen explored. A 12 mm trocar was then placed in the epigastrium. Two 5 mm trocars placed in the right upper quadrant by the radiology practitioner assistant. The patient was placed in reverse Trendelenburg positioning and rotated to the left. The gallbladder was grasped with the fundus and retracted cephalad by the radiology practitioner assistant. The infundibulum was then grasped and retracted away from the liver bed, also by the radiology practitioner assistant. The Dolphin dissected was then used by the surgeon to dissect the peritoneum off the infundibulum to reveal the junction with the cystic duct. Cystic artery was noted slightly medial and posterior to the cystic duct. After obtaining a critical view the cystic duct was doubly clipped and divided. The cystic artery was then doubly clipped and divided. The gallbladder was then dissected off the liver bed using electrocautery with an L hook. Hemostasis was assured all times using the electrocautery. When the gallbladder is completely dissected off the liver bed was placed in an Endo-Catch bag and brought out through the epigastric incision. The gallbladder was sent to pathology for further examination. The abdomen was then re-examined. The liver bed was irrigated and suctioned dry. No bleeding or bile leak could be identified. CO2 was then evacuated and all trocars removed. Fascia was closed at the epigastric incision using a [id number] 0 Polysorb suture. Skin was closed in all incisions using a subcuticular 4 0 Polysorb suture by both the surgeon and radiology practitioner assistant. Sterile dressings consisting of Steri-Strips, 2 x 2 gauze, and Tegaderm were then applied. The patient tolerated the procedure well. Sponge instrument and needle counts reported as correct. The patient was transferred to PACU in stable condition.
== END 2025-02-15 10:45 | disposition home or self-care (01) ==
PROVIDERS: PCP Internal Medicine; Visit Provider Surgery
PROC: 0FT44ZZ Resection of Gallbladder, Percutaneous Endoscopic Approach (ICD-10-PCS; CPT 47562; principal; 2025-02-15 07:30)
DX: K80.12 Calculus of gallbladder with acute and chronic cholecystitis without obstruction (principal); K21.9 Gastro-esophageal reflux disease without esophagitis; J45.909 Unspecified asthma, uncomplicated; M19.90 Unspecified osteoarthritis, unspecified site; F41.9 Anxiety disorder, unspecified; Z79.899 Other long term (current) drug therapy; Z98.890 Other specified postprocedural states; Z87.891 Personal history of nicotine dependence
CPT/HCPCS: 47562; 88304; J1100; J1171; J2405; J2704; J3010

== ENCOUNTER → 2025-02-15 05:57 | Outpatient (BNV) | payer OTHER, SELFPAY | PROVIDERS: PCP Internal Medicine; Visit Provider Surgery | DX: K80.10 Calculus of gallbladder with chronic cholecystitis without obstruction (principal) | CPT/HCPCS: 47562 ==

== ENCOUNTER 2025-02-27 10:45 | Outpatient (AMB) | payer OTHER, SELFPAY ==
--- NOTE | 2025-02-27 11:11 | A.OFFVIS_ITS ---
Vital Signs 02/27/25 11:15 Height 5 ft 7 in Weight 196 lb 3.382 oz BMI 30.7 Intake Visit Reasons: S/P lap cole Intake Note: Patient is seen in office for post op assessment post laparascopic cholecystectomy. 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 Minimal pain at this point, only required narcotics for about a day postop. She was actually able to returned to work after 5 days. 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 Diet and bowel function have been at baseline. States she has microscopic colitis, experiences loose stools occasionally at baseline. She did note that when she had an outside able that this did not sit right with her but this has been the only instance of difficulty with diet. She denies fevers or chills at home. States the epigastric port site is the most tender. States incision sites have been healing well initially had some bleeding on the 1st postop day but this has subsided. Denies any other drainage, redness around the incision sites PFSH Medical History Anxiety Arthritis Chronic GERD Asthma Ovarian cyst Surgical History Hx laparoscopic cholecystectomy (02/15/25) History of hip surgery History of knee surgery Previous section Family History Mother Asthma Hypertension Maternal Grandmother Hypertension Colon cancer Social History Household Members: Spouse and Children Housing: Apartment 75 years or older and lives alone: No Alcohol intake: current Alcohol intake frequency: a few times a month Patient Tobacco Use Status: Former Tobacco user Tobacco use type: Smokeless Tobacco Cigarette Packs Per Day: 1 Years Smoked: 12 e-Cigarette/Vaping Use: Never Used Substance Use Type: Marijuana service: No Current occupational status: employed Current occupation: [employer] Current occupational exposures/hazards: Yes Cognitive needs: No Hearing needs: Yes (Left ear hearing loss) Vision needs: Yes (wears glasses) Review of Systems Const All systems reviewed & are unremarkable except as noted in HPI and below Physical Exam Vital Signs: BMI result Body Mass Index 30.7 Assessment & Plan Assessment & Plan (1) S/P laparoscopic cholecystectomy: Code(s): Z90.49 - Acquired absence of other specified parts of digestive tract Category: Medical Plan 54-year-old female s/p laparoscopic cholecystectomy on 02/15/2025 returning to the office for routine 2 week follow up. Overall patient doing well, returning to baseline. Experiencing minimal pain, epigastric port site is [employer] to palpation. Diet and appetite are returned to baseline. On exam abdomen is soft and benign. Some very mild tenderness at the epigastric port site. Incisions appear to be healing well, no concern for infection at this time. In terms of restrictions, we will continue with activity restrictions no heavy lifting greater than 15-20 lb for the next 2 weeks. After that I recommended that the patient slowly resume activity at half of her baseline and progress towards her baseline level activity, she is agreeable to this plan. Patient would prefer no scheduled follow-up, and to follow up as needed given that her mother recently passed and she will be out of town for a bit. She can follow up as needed with any concerns in the future Coding Level of Care Code Global (73089) Diagnoses S/P laparoscopic cholecystectomy Z90.49
[2025-02-27 11:15] VITALS: BMI 30.7
--- OUTSIDE RECORDS SUMMARY | 2025-02-27 13:07 | XMS_ITS | Clinical Summary ---
Author Organization [employer] Address [address] [place] [address] Care Team Providers Care Library Clerk Name Role Phone Unavailable Primary Care Provider [...] COVID-19 Vaccine ( - 2023-2 5 season) 2025 Influenza Vaccine (#1) 2025 RSV Patients and [...]
--- OUTSIDE RECORDS SUMMARY | 2025-02-27 13:07 | XMS_ITS | Encounter Summary ---
Author Organization [employer] [facility] Address [address] [place] [address] Care Team Providers Care Disintegrator Name Role Phone Unavailable Primary Care Provider Unavailabl e Encounter Details Date Type Department Care Team (Latest Contact Info) Description 12/03/2018 Abstract [facility] CONVERSIONS Dental, Provider, DDS Social History [...]
== END 2025-02-27 11:23 | disposition home or self-care (01) ==
LOC: HO.HGS 10:46
PROVIDERS: PCP Internal Medicine
DX: Z90.49 Acquired absence of other specified parts of digestive tract (principal)
CPT/HCPCS: 99024

== ENCOUNTER 2025-05-23 13:27 | Outpatient (AMB) | payer OTHER, SELFPAY ==
--- NOTE | 2025-05-23 13:28 | A.OFFVIS_ITS ---
Vital Signs 05/23/25 13:34 Height 5 ft 7 in Weight 196 lb BMI 30.7 Intake Visit Reasons: consistent RUQ pain after lap cole 02-15-25 Intake Note: Patient presents for consistent RUQ pain. Hx lap cole 02-15-25. Pt c/o; reports discomfort/pain RUQ incision, denies drainage, oozing or pus from the incision, denies fever, chills, nausea or vomiting. 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 Thought it would get better but has not improved at all. Describes a burning stabbing pain at the incision site even to light touch with the hand. Often times when reaching overhead she has pain in this area. She denies any drainage, there was no redness or lumps that she has noticed. Denies fevers at home. Has been taking ibuprofen at home 800 mg 3 times a day, states she does not take Tylenol because it does not work very well. [facility] Medical History Anxiety Arthritis Chronic GERD Asthma Ovarian cyst Surgical History Hx laparoscopic cholecystectomy (02/15/25) History of hip surgery History of knee surgery Previous section Family History Mother Asthma Hypertension Maternal Grandmother Hypertension Colon cancer Social History Household Members: Spouse and Children Housing: Apartment 75 years or older and lives alone: No Alcohol intake: current Alcohol intake frequency: a few times a month Patient Tobacco Use Status: Former Tobacco user Tobacco use type: Smokeless Tobacco Cigarette Packs Per Day: 1 Years Smoked: 12 e-Cigarette/Vaping Use: Never Used Substance Use Type: Marijuana service: No Current occupational status: employed Current occupation: [employer] Current occupational exposures/hazards: Yes Cognitive needs: No Hearing needs: Yes (Left ear hearing loss) Vision needs: Yes (wears glasses) Physical Exam Vital Signs: BMI result Body Mass Index 30.7 Const General: comfortable and no acute distress Orientation/consciousness: patient oriented x3 GI Other: Incision sites well healed. Epigastric: No surrounding erythema, no fluid collection. Very tender to light touch. Unable to appreciate fascial defect or hernia. No hernia with Valsalva when seated. Neuro General: patient oriented x3 Assessment & Plan Assessment & Plan (1) S/P laparoscopic cholecystectomy: Code(s): Z90.49 - Acquired absence of other specified parts of digestive tract Category: Surgical (2) RUQ pain: Code(s): R10.11 - Right upper quadrant pain Category: Medical Plan 54-year-old female s/p laparoscopic cholecystectomy on 02/15/2025 returning to the office for persistent pain at the epigastric incision site. Pain occurs daily, describes a burning sharp stabbing pain at the incision site and pain with even light touch to the area. Additionally when reaching overhead has pain. There has been no drainage, nose changes to the skin, no visible hernia. She does occasionally lift at work which also aggravates this area. She has been taking 800 mg of ibuprofen 3 times a day. Wondering what else she can take for pain. I am hesitant to give a narcotic for this, recommended supplementing ibuprofen with Tylenol alternating doses to achieve better pain control. She is agreeable to trying this plan. On exam the area visually appears normal, there was no evidence of infection. I was unable to appreciate a hernia at this site when the patient performed a Valsalva while seated. Also unable to appreciate any defect in the fascia during the exam. I do not think this is any acute infectious process at this time, I am suspicious that this may be musculoskeletal in nature given her symptoms however would like to we will out any underlying pathology by obtaining an ultrasound of the area. She is agreeable to this plan. She will call to schedule an appointment when she has been scheduled for her ultrasound Orders: Orders US abdomen limited Today R10.11 - Right upper quadrant pain, Z90.49 - Acquired absence of other specified parts of digestive tract Coding Level of Care Code Est Pt Level 4 (30390) Diagnoses S/P laparoscopic cholecystectomy Z90.49 RUQ pain R10.11
[2025-05-23 13:34] VITALS: BMI 30.7
--- OUTSIDE RECORDS SUMMARY | 2025-05-23 15:28 | XMS_ITS | Encounter Summary ---
Author Organization [employer] [facility] Address [address] [place] [address] Care Team Providers Care Chemical Processor Name Role Phone Unavailable Primary Care Provider Unavailabl e Encounter Details Date Type Department Care Team (Latest Contact Info) Description 12/03/2018 Abstract [facility] CONVERSIONS Dental, Provider, DDS Social History [...]
--- OUTSIDE RECORDS SUMMARY | 2025-05-23 15:28 | XMS_ITS | Clinical Summary ---
Author Organization [employer] Address [address] [place] [address] Care Team Providers Care Sales Support Specialist Name Role Phone Unavailable Primary Care Provider [...] Vaccines (1 of 2) 10/05/2019 COVID-19 Vaccine (2024-2 6 season) 2025 Influenza Vaccine (#1) 2025 RSV [...]
== END 2025-05-23 13:48 | disposition home or self-care (01) ==
LOC: HO.HGS 13:27
PROVIDERS: PCP Internal Medicine
DX: Z90.49 Acquired absence of other specified parts of digestive tract (principal); R10.11 Right upper quadrant pain
CPT/HCPCS: 99214